=== PATIENT | male | born 1985 | race African-American/Black ===

== ENCOUNTER 2020-03-16 20:47 | Emergency (ER) | payer OTHER ==
[~2020-03-16] VITALS: Ht 195.6 cm; Wt 104.3 kg
[2020-03-16 20:49] VITALS: BP 121/56
[2020-03-16] MEDS ORDERED: LORATADINE10 M2 PO (21:08)
[2020-03-16] MEDS ORDERED: IBUPROFEN600 M1 ORAL (21:08)
--- NOTE | 2020-03-16 21:08 | Emergency Room Report ---
History of Present Illness General Chief Complaint: Medical Clearance Source: Patient Present Illness HPI 34-year-old male with no known past medical history brought in by [employer] for medical clearance. [place] is [place], denies any fall or injury or any altercation. Has a bandage on left cheek which refuses to have me take a look at it. Reports that is already been taking care of. Complains of congestion, and site pain without any fall or injury. Reports that it is hard for him to breathe however he is showering speaking full sentences. Walking with a normal steady gait. Denies any diarrhea, and all other URI symptoms. Patient asking "I want a chest x-ray.". Allergies: Coded Allergies: No Known Allergies (Unverified , 03/16/20) COVID-19 Screening Contact w/high risk pt: No Experienced COVID-19 symptoms?: No COVID-19 Testing performed TRAILER ASSEMBLER: No Patient History Past Medical History: see triage record Past Surgical History: none Pertinent Family History: none Immunizations: UTD Reviewed Nursing Documentation: PMH: Agreed; PSxH: Agreed Nursing Documentation-PMH Past Medical History: No History, Except For Hx Asthma: Yes Review of Systems All Other Systems: negative except mentioned in HPI Physical Exam Vital Signs Date Time Temp Pulse Resp B/P (MAP) Pulse Ox O2 Delivery O2 Flow Rate FiO2 03/16/20 20:49 98.4 96 18 121/56 (77) 96 Room Air Sp02 EP Interpretation: reviewed, normal General Appearance: no apparent distress, alert, GCS 15, non-toxic Head: normocephalic, atraumatic Eyes: bilateral eye normal inspection, bilateral eye PERRL ENT: hearing grossly normal, no angioedema, normal voice Neck: supple Respiratory: no respiratory distress, no retraction, no accessory muscle use Cardiovascular #1: regular rate, rhythm, no edema Rectal: deferred Musculoskeletal: back normal, no calf tenderness Neurologic: alert, motor strength/tone normal, oriented x3, sensory intact, responsive, speech normal Psychiatric: judgement/insight normal, memory normal, mood/affect normal, no suicidal/homicidal ideation Skin: no rash Lymphatic: no adenopathy Medical Decision Making PA Attestation All my diagnosis and treatment plans were reviewed ad discussed with my supervising physician Dr. Mcclal Diagnostic Impression: Primary Impression: URI (upper respiratory infection) Additional Impression: Muscle ache ER Course 34-year-old male with no known past medical history brought in by [employer] for medical clearance. [place] is [place], denies any fall or injury or any altercation. Has a bandage on left cheek which refuses to have me take a look at it. Reports that is already been taking care of. Complains of congestion, and site pain without any fall or injury. Reports that it is hard for him to breathe however he is showering speaking full sentences. Walking with a normal steady gait. Denies any diarrhea, and all other URI symptoms. Patient asking "I want a chest x-ray.". Ddx considered but are not limited to: strep pharyngitis, URI, tonsillitis, peritonsillar abscess, influneza Vital signs: are WNL, pt. is afebrile H&PE are most consistent with: URI, muscle ache Patient used foul language and shouted throughout his whole visit. ORDERS: CXR, motrin, claritin ED INTERVENTIONS: None required at this time. Patient was discharged to law enforcement and medically cleared. At this time no signs of rib fracture, pneumonia noted. Patient follow primary doctor. Patient walking steady gait and has full motion. Advised to return to the emergency room if worsening symptom. Chest X-Ray Diagnostic Results Chest X-Ray Diagnostic Results : Chest X-Ray Ordered: Yes # of Views/Limited/Complete: 1 View Indication: Other EP Interpretation: Yes PA Xray: Interpretation reviewed, by supervising MD, and agrees with findings. Interpretation: no consolidation, no effusion, no pneumothorax Impression: No acute disease Electronically Signed by: Дмитрий Soto PA-C Last Vital Signs Date Time Temp Pulse Resp B/P (MAP) Pulse Ox O2 Delivery O2 Flow Rate FiO2 03/16/20 20:49 98.4 96 18 121/56 (77) 96 Room Air Disposition: LAW ENFORCEMENT IN CUST Condition: Stable Scripts Ibuprofen* (MOTRIN*) 600 Mg Tablet 600 MG ORAL Q6H PRN for For Pain, #30 TAB 0 Refills Prov: Дмитрий Hu 03/16/20 Loratadine (Claritin*) 10 Mg Tablet 10 MG PO DAILY for Allergies, #20 TAB Prov: Дмитрий Hu 03/16/20 Patient Instructions: Muscle Pain, Adult, Upper Respiratory Infection, Adult, [id number] Additional Instructions: Take medication as directed, follow-up with primary care provider, worsening symptoms return to the emergency room Дмитрий Hu Mar 16, 2020 21:08
[2020-03-16 21:12] VITALS: BP 121/56
--- NOTE | 2020-03-17 10:18 | Diagnostic Imaging Report ---
Procedure: XRAY Chest 1v Reason for study: Reason For Exam: SOB Comparison films: None. FINDINGS: A single one view chest is obtained. Vascularity is normal. Slight haziness noted left lung base. Atelectasis versus early infiltrate. Cardiac and mediastinal silhouette are within normal limits. CP angles are sharp. The bony thorax appear unremarkable. IMPRESSION: Slight haziness left lung base. Question atelectasis versus early infiltrate.
== END 2020-03-16 21:16 ==
LOC: EMR 21:05
DX: J06.9 Acute upper respiratory infection, unspecified (principal); M79.10 Myalgia, unspecified site; J45.909 Unspecified asthma, uncomplicated; Z02.89 Encounter for other administrative examinations
CPT/HCPCS: 71045; 99283